=== PATIENT | male | born 1995 | race Native Hawaiian/Other Pacific Islander ===

== ENCOUNTER 2016-07-10 10:06 | Day surgery (SDC) | payer BC ==
[2016-07-10] MEDS ORDERED: Propofol 10 mg/ml Inj (20 ML) ONE ×2 (12:25→12:46)
[2016-07-10] MEDS ORDERED: Lactated Ringer's 500 ML IV ONE (12:30)
[2016-07-10] MEDS ORDERED: Simethicone 40 mg/0.6 ml Liquid (30 ml) ONE (12:37)
[2016-07-10 13:32] VITALS: RESP 14
[2016-07-10 13:45] VITALS: PULSE 50; O2SAT 100
[2016-07-10 14:08] VITALS: BP 115/47; TEMP 97.8
== END 2016-07-10 14:05 | disposition home or self-care (01) ==
LOC: C.ENDO 10:06
PROVIDERS: ATTEND Internal Medicine Gastroenterology
DX: K52.9 Noninfective gastroenteritis and colitis, unspecified (principal); K57.92 Diverticulitis of intestine, part unspecified, without perforation or abscess without bleeding
CPT/HCPCS: 45380; 88305; J2704; J3010; J7120